=== PATIENT | female | born 1990 | race Caucasian/White ===

== ENCOUNTER 2018-08-18 06:36 | Emergency (ER) | payer BC, SELFPAY ==
[2018-08-18] VITALS (8 sets, daily range): BP systolic 100–125; BP diastolic 60–81; PULSE 66–106; RESP 20; TEMP 37.2; O2SAT 98–100
[2018-08-18] MEDS: Ondansetron 4 MG/2 ML VIAL IVP (07:14)
[2018-08-18] MEDS: Lactated Ringers 1,000 ML 1000 ML IV (07:15)
--- NOTE | 2018-08-18 07:18 | ED.GENADUL_ITS ---
Discharge Plan Disposition Patient Disposition: HOME Condition: Stable Discharge Details Chief Complaint: Nausea/Vomit/Diar Clinical Impression: Nausea & vomiting Primary Care Provider: Cheryl Reese ED Provider: Norman Domingo Home Meds and New Rx's Prescriptions: New ondansetron 4 mg tablet,disintegrating 4 mg PO TID-QID PRN (Reason: nausea and vomiting) Qty: 30 RF: 0 Continued desogestrel-ethinyl estradiol [Juleber] 0.15-0.03 mg tablet 1 tab PO DAILY Qty: 84 RF: 4 fluoxetine 10 mg capsule 10 mg PO prn for pmdd RF: 0 Discharge Instructions Instructions: Acute Nausea and Vomiting (ED) Additional Instructions: follow up with your primary care provider within a week especially if symptoms continue you can take 1000mg tylenol and 600mg ibuprofen every 6 hours for pain as needed if you feel significantly more ill or have persistent vomit return to the emergency department Stand Alone Forms: Work Release Discharge Data Discharge Date/Time-TO BE ENTERED AT DEPARTURE: 08/18/18 09:22 Medical Decision Making <Adolfo Dickson MD - Last Filed: 08/18/18 20:22> Young female patient presenting with GI symptoms involving vomiting and diarrhea. She has developed upper abdominal/epigastric discomfort as well. She also has a posterior headache with some neck stiffness. Headache is not global. There are no neurologic symptoms associated with it. She had fever Thursday into Thursday but none since. Initially started out as all GI symptoms. I do not suspect meningitis or subarachnoid hemorrhage. Abdomen itself is benign. Will place IV and start fluids. Zofran and Pepcid for nausea and abdominal discomfort. Will get labs. We will hold off on Toradol for her neck discomfort due to her complaint of epigastric pain and vomiting. We will try a little bit of Valium IV as I suspect most of this is just muscle spasm involving the posterior neck muscles. <Norman Domingo MD - Last Filed: 08/18/18 08:40> Pt's labs show no acute findings, remains hd stable. She feels mildly better. She states she started with a fever to 101 on Thursday and had n/v/d. Fever has stopped but still has nauesa and a headache. Has no meningismus on exam, no significant abodminal tenderness so do not feel abdominal imaging indicated. We had a long discussion about manager of human resources infection and that though my suspicion for this is low based on exam, hx that these can't rule these out and a LP is the only way to have this done. After detailed discussion of risks/benefits shared decision making was made to defer this at this time. She will f/u with her pcp and return precautions given. My suspicion is that she has a viral illness causing her symptoms HPI <Adolfo Dickson MD - Last Filed: 08/18/18 20:22> General Mode of arrival: ambulatory . Date/Time Provider Initiated Documentation: 08/18/18 07:14 . Limitations to Documentation: no limitations . Information obtained by: patient . HPI Narrative: Patient presents to ED with complaint of nausea, vomiting, diarrhea, upper abdominal discomfort since Thursday night. At this point she is having dry heaves. Diarrhea seems to have slowed down. She is able to keep a few sips of liquids down. She has not been able to eat anything. She did have fever Thursday and Thursday. She has had no travel outside of the [place]. She has not been around anyone ill that she is aware of. She has developed a posterior base of the skull headache with some radiation of discomfort into the neck. She has had these previously although typically does not make her neck so uncomfortable. She denies any back pain. She denies chest pain or shortness of breath. There are no neurologic changes. She does feel weak and tired. Related Data Home Medications Medication Instructions Recorded Confirmed desogestrel 0.15 mg-ethinyl 1 tab PO DAILY #84 tab 04/06/18 06/21/18 estradiol 0.03 mg tablet fluoxetine 10 mg capsule 10 mg PO prn for pmdd 04/06/18 06/21/18 ondansetron 4 mg PO TID-QID PRN #30 tab 08/18/18 Previous Rx's Medication Instructions Recorded desogestrel 0.15 mg-ethinyl 1 tab PO DAILY #84 tab 04/06/18 estradiol 0.03 mg tablet ondansetron 4 mg PO TID-QID PRN #30 tab 08/18/18 Allergies Allergy/AdvReac Type Severity Reaction Status Date / Time moxifloxacin AdvReac Intermediate VOMITING Unverified 04/06/18 14:26 General Stated Complaint: Nausea/Vomit/Diar ELISABET: 3 Review of Systems <Adolfo Dickson MD - Last Filed: 08/18/18 20:22> Review of Systems 12/27 Review of Systems completed and is negative except as stated above in HPI (Systems reviewed: Const, Eyes, ENT, Resp, CV, GI, , MSK, Skin, Neuro) PFS <Adolfo Dickson MD - Last Filed: 08/18/18 20:22> Medical History Abdominal pain (Chronic 06/18/12) Acne (Chronic) Anxiety (Chronic) Celiac disease (Chronic 06/17/12) Depressive disorder (Chronic) 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 Father Leukemia Brother No problems noted. Brother No problems noted. Maternal Grandfather Cancer of kidney Lymphoma Paternal Grandfather No problems noted. Grandmother Breast cancer Skin cancer Paternal Grandmother No problems noted. Social History Smoking/Tobacco Use Status: Never Alcohol Intake: current Alcohol Intake frequency: a few times a month Alcohol type: wine Drug use: Never Substance use type: does not use Caregiver/Support person: No Household members: family Housing: house Pets and animals: Yes Pets and animals: cat(s) Sexually active: Yes Do you think of yourself as: straight/heterosexual Current gender identity: female Duration: 15-30 minutes/day Frequency: 1-2 times per week Veronique/Jehovah'S Witness: Zoroastrianism Special veronique needs: No Do you feel safe at home: Yes Do you feel safe in your relationship?: Yes Exam <Adolfo Dickson MD - Last Filed: 08/18/18 20:22> Narrative Exam Narrative: Vitals: Afebrile. Mild tachycardia otherwise normal. Const: WDWN female in NAD. HEENT: NC/AT. Normal facial exam. Eyes: Normal conjunctiva and sclera. Neck: Posterior neck discomfort and tightness. Trachea midline. Lungs: Normal respiratory effort. Lungs are clear. Cor: RRR without murmur/gallop. Mild tachycardia. Good radial pulses. GI: Soft. NT/ND. No guarding or rebound. Neuro: A+O x 3. CN grossly in tact. Normal strength, sensation, speech, gait and cognition. Ext: No C/C/E. No deformity or tenderness. Skin: Warm and dry without rash. Course <Adolfo Dickson MD - Last Filed: 08/18/18 20:22> Vital Signs Temperature 99.0 F 08/18/18 06:40 Pulse 106 H 08/18/18 06:40 Respiratory Rate 20 08/18/18 06:40 Blood Pressure 125/81 08/18/18 06:40 Pulse Oximetry 100 08/18/18 06:40 Temperature 99.0 F 08/18/18 06:40 Temperature Source Tympanic 08/18/18 06:40 Pulse 106 H 08/18/18 06:40 Respiratory Rate 20 08/18/18 06:40 Respiratory Effort Non-Labored 08/18/18 06:46 Blood Pressure 125/81 08/18/18 06:40 Blood Pressure Position Sitting 08/18/18 06:40 Pulse Oximetry 100 08/18/18 06:40 Oxygen Delivery Method Room Air 08/18/18 06:40 Oxygen Flow Rate 0 08/18/18 06:40 Pain Level 9 08/18/18 06:40 Comment 7 epigastric 08/18/18 06:40 Sign Out <Adolfo Dickson MD - Last Filed: 08/18/18 20:22> Sign Out Data: Sign Out Comment: Signed out to Dr. Rodríguez pending laboratory studies and reevaluation. Last updated by Adolfo Dickson MD at 08/18/18 08:08
[2018-08-18 07:24] LABS: Abs Immature Grans 0.01 k/cumm (0.0-0.09); Absolute Basophil Count 0.01 k/cumm (0.0-0.2); Absolute Eosinophil Count 0.06 k/cumm (0.0-0.7); Absolute Lymphocyte Count 1.92 k/cumm (1.2-3.4); Absolute Monocyte Count 0.63 k/cumm (0.11-0.7); Absolute Neutrophil Count 3.14 k/cumm (1.2-6.7); Basophils % 0.2; HGB 13.6 g/dL (12.0-15.5); Immature Grans % 0.2; Lymphocytes % 33.3; Mean Corp. HGB Concentration 36.8 g/dL (32.0-36.0); Mean Corpuscular Hemoglobin 30.3 pg (27.0-33.0); Mean Corpuscular Volume 82.4 fL (80-95); Mean Platelet Volume 8.6 fL (8.0-11.0); Monocytes % 10.9; Neutrophils % 54.4; Platelet Count 288 x1000/uL (130-400); RBC 4.49 m/cumm (4.00-5.20); RBC Distribution Width 11.8 % (11.7-14.6); White Blood Cell Count 5.77 k/cumm (4.4-10.8)
[2018-08-18 07:40] LABS: ALT 17 U/L (12-78); AST 14 U/L (15-37); Albumin 3.2 g/dL (3.4-5.0); Alkaline Phosphatase 50 U/L (46-116); Anion Gap 10.5 mmol/L (3-11); BUN 9 mg/dL (7-18); Bilirubin, Total 0.3 mg/dL (0.2-1.0); CO2 22.5 mmol/L (21.0-32.0); CREATININE 0.82 mg/dL (0.55-1.02); Calcium 8.6 mg/dL (8.5-10.1); Chloride 103 mmol/L (98-107); Glucose 98 mg/dL (70-100); Lipase 154 U/L (73-393); Magnesium 1.9 mg/dL (1.8-2.4); Potassium 3.4 mmol/L (3.5-5.1); Sodium 136 mmol/L (136-145); Total Protein 7.4 g/dL (6.4-8.2)
[2018-08-18] MEDS: diazePAM 10 MG/2 ML SYR 2.5 MG IVP (07:48)
[2018-08-18] MEDS: FAMOTIDINE 20 MG/50 ML BAG 200 MG IVPB (07:49)
[2018-08-18 08:15] LABS: Diff Comment RBC Morph Reviewed; RBC Morphology Normal
[2018-08-18] MEDS: Ketorolac 15 MG/ML VIAL IVP (08:25)
[2018-08-19 11:04] LABS: Lyme Ab w Rflx to Lyme Confirm Negative
[2018-08-19 21:27] LABS: Anaplasma phagocytophilum Negative (Negative); B. miyamotoi PCR Negative (Negative); Babesia divergens/MO-1 Negative (Negative); Babesia duncani Negative (Negative); Babesia microti Negative (Negative); Ehrlichia chaffeensis Negative (Negative); Ehrlichia ewingii/canis Negative (Negative); Ehrlichia muris eauclairensis Negative (Negative)
== END 2018-08-18 09:22 | disposition home or self-care (01) ==
PROVIDERS: Emergency Medicine; Emergency Provider Emergency Medicine; PCP Family Medicine
DX: R11.2 Nausea with vomiting, unspecified (principal); R19.7 Diarrhea, unspecified; R10.13 Epigastric pain; R51 Headache
CPT/HCPCS: 36415; 80053; 81025; 83690; 96361; 96365; 96375; 99284; 83735; 85025; 86618; 87798; J1885; J2405; J3360

== ENCOUNTER 2018-12-20 14:01 | Observation (INO) | payer BC, SELFPAY ==
[2018-12-20] VITALS (14 sets, daily range): BP systolic 99–237; BP diastolic 61–110; PULSE 75–118; RESP 10–37; TEMP 36.3–37.2; O2SAT 96–100
[2018-12-20] MEDS: Acetaminophen 500 MG TAB 1000 MG PO (07:47)
[2018-12-20] MEDS: Gabapentin 300 MG CAP PO (07:48)
[2018-12-20] MEDS: Lactated Ringers 1,000 ML 120 ML IV ×2 (07:48→13:32)
--- NOTE | 2018-12-20 08:32 | PDOC.DSDIS_ITS ---
Discharge Plan Disposition Patient Disposition: HOME Condition: Good Discharge Details Reason For Visit: excision anal tag Attending Provider: Jennifer Canada Primary Care Provider: Cheryl Reese Home Meds and New Rx's Prescriptions: New dibucaine 1 % ointment 1 applic CO QID PRN (Reason: rectal discomfort) Qty: 56.7 RF: 3 oxycodone 5 mg capsule 5 mg PO Q6H PRN (Reason: pain) Qty: 7 RF: 0 bisacodyl [Dulcolax (bisacodyl)] 5 mg tablet,delayed release (DR/EC) 5 mg PO QHS 14 Days Qty: 14 RF: 2 Continued desogestrel-ethinyl estradiol [Juleber] 0.15-0.03 mg tablet 1 tab PO DAILY Qty: 84 RF: 4 fluoxetine 10 mg capsule 10 mg PO prn for pmdd RF: 0 Discharge Instructions Additional Instructions: Home Care Instructions after Rectal Surgery Pain/muscle spasms are normal after surgery. Use the prescribed pain medication s, valium and topical creams. Do not use any other creams unless specifically prescribed for you. It takes oral pain meds an hour to take effect. Do not get behind on your pain meds. You can alternate with NSAID?s (ibuprofen 400- 600mg) every 8 hours. Take with food; do not take if you have ulcers or sensitivity to aspirin. Constipation occurs with the use of narcotic pain medications. The first bowel movement after surgery will be painful. Do not let yourself get constipated. Stay on a stool softener while you are on the narcotics. It is recommended that you use a fiber supplement (Metamucil, Citrucel) daily (1 tablespoon in 8 oz of water). If you do not have a bowel movement daily, use Milk of Magnesia or Miralax. It is normal to have bleeding or drainage after rectal surgery; especially when you move your bowels. Use a sanitary napkin to collect the discharge. If you are passing large clots or having to change the pad more than every 4 hours, call the clinic or go to the ER. You may experience spasms in the rectal muscles. This is normal after surgery and last for about two weeks. They can become more intense with bowel movements. You can use the valium as a muscle relaxant (do not take at the same time as the pain medications). You can also try sitz bathes (sitting in a bath tub of PLAIN lukewarm water; soap can add to rectal irritation). Or you can try ice packs. You will have to see what works best for you. It is ok to shower. Avoid soap on the surgical area. Use a pillow to sit on. Follow a mild bland diet. Avoid alcohol, spicy food, citrus, and tomatoes. Avoid strenuous activity (running, jogging, and power walking, swimming, weight lifting) for two weeks. No lifting over 5 pounds for 2 weeks. [address] if taking pain medications, or cannot turn or twist your body without hesitation. You can return to work when you are no longer taking the pain meds, can sit comfortably for 8 hours or when the weight restrictions are lifted. Urinary retention is common. Sit in a warm tub to try to relax the bladder. If you are unable to urinate after 8 hours, call the office or go to the ER. If you have packing in place, follow the directions for doing the dressing changes. If you have stitches in place, they will fall out in about 7-10 days. They may develop an ?odor?. Follow up in 2 weeks- call the office for an appointment. Activity:: no strenuous acitivity x 2 wks Diet:: As Tolerated Discharge Orders Discharge Orders: Discharge Order (Routine); Ordered 12/20/18 Ordered By: Jennifer Canada DS: Diagnosis Discharge Diagnosis (1) Rectal spasm: Status: Acute (2) Skin tags, anus or rectum: Status: Acute (3) Anal fissure: Status: Acute
--- NOTE | 2018-12-20 09:18 | W.PM.OP ---
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
[2018-12-20] MEDS: Gelatin SPONGE 12-7 MM PKT 1 EACH TP (09:27)
[2018-12-20] MEDS: LORazepam 2 MG/ML VIAL 0.5 MG IVP (10:00)
--- NOTE | 2018-12-20 10:44 | ROE_ITS ---
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 POSTOPERATIVE DIAGNOSIS: Same. SURGEON: Jennifer Canada D.O. ANESTHESIA: MAC ESTIMATED BLOOD LOSS: < 0.5 cc CONDITION: The patient tolerated the procedure well without complication. INDICATION: Ms. 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 She is not a candidate to have it removed in the clinic and is here today for surgery. Informed consent is obtained explaining risks and benefits of the procedu re, including but not limited to bleeding, infection, pneumonia, blood clots, complications from anes thesia. She understands it could recur with constipation and straining to move her bowels. PROCEDURE: The patient is brought to the operative suite and placed in the prone position with all b fredo surfaces padded. Anesthesia is administered per the Department of Anesthesia. The area is prepp ed and draped in the usual sterile fashion using a Betadine scrub solution. A time-out is done. The tag is at the 6 o'clock position and it is anesthetized with 10 cc's of 0.25% Marcaine with epinephr ine. The tag is excised with cautery. The incision was closed with one stitch of #4-0 Vicryl. Gelf oam was placed in the rectum. The patient is transferred to the recovery room in stable condition. The patient tolerated the procedure well without complications. cc: Cheryl Reese M.D.
--- NOTE | 2018-12-20 14:06 | W.PM.PROGNOT ---
Date of Service Date of service: 12/20/18 Time of Service: 14:06 Assessment and Plan Assessment and plan (1) Skin tags, anus or rectum: Status: Acute (2) Panic attack as reaction to stress: Status: Acute (3) Idiosyncratic reaction to medication after proper dose: Status: Acute (4) PONV (postoperative nausea and vomiting): Status: Acute Assessment and plan: still feels very nausated and tired. more awake adn alert. hasn't been able to eat yet less agitated and no longer hyperventilating needs to be able to eat/keep fluids down prior to d/c. Subjective Subjective Interval history since last seen: still feels very nausated. no headaches. No CP or SOB. no productive cough. no dysuria. no leg pain or swelling. no pain at surgery site pt throw up toast and madhavi bill in PACU. Exam Resp Effort & Inspection: normal respiratory effort and able to speak in complete sentences Cardio Rate: regular rate Rhythm: regular rhythm GI Inspection: normal to inspection Palpation: soft Other: no pain no bleeding from sx site Extrem General: normal to inspection and no clubbing, cyanosis or edema Objective Objective Clinical Data: Vital Signs Temperature 36.5 C 12/20/18 13:05 Pulse 85 12/20/18 13:33 Pulse Rhythm Regular 12/20/18 07:20 Respiratory Rate 18 12/20/18 13:33 Respiratory Depth Normal 12/20/18 07:20 Blood Pressure 113/64 12/20/18 13:33 Pulse Oximetry 97 12/20/18 13:33 Respiratory End-tidal CO2 29 12/20/18 10:25 Oxygen Delivery Method Room Air 12/20/18 13:33 Oxygen Flow Rate 3 12/20/18 10:00 Pain Level 0 12/20/18 13:33 Intake & Output 12/19/18 12/20/18 12/20/18 23:59 11:59 23:59 Intake Total 815 / 1015 200 / 1015 Balance 815 / 1015 200 / 1015 Weight 70.4 kg Intake: IV 800 / 1000 200 / 1000 Oral Other: Emesis Description None Retching
[2018-12-20] MEDS: Normal Saline 1,000 ML 125 ML IV (15:50)
[2018-12-20] MEDS: Prochlorperazine 10 MG/2 ML VIAL 5 MG IVP (16:24)
[2018-12-20] MEDS: ACETAMINOPHEN 1,000 MG/100 ML BTL 400 MG IVPB ×2 (16:31→21:22)
[2018-12-20] MEDS: Docusate Sodium 100 MG CAP PO (19:37)
[2018-12-21] MEDS: Normal Saline 1,000 ML 125 ML IV (00:43)
[2018-12-21 05:30] VITALS: BP 109/64; PULSE 82; RESP 16; TEMP 37.2; O2SAT 98
[2018-12-21] MEDS: Normal Saline Flush 10 ML SYR IVP (06:21)
[2018-12-21] MEDS: ACETAMINOPHEN 1,000 MG/100 ML BTL 400 MG IVPB (06:21)
--- NOTE | 2018-12-21 07:24 | DSE_ITS ---
Date of service: 12/21/18 Time of Service: 07:24 DS: Diagnosis Discharge Diagnosis (1) Skin tags, anus or rectum: Status: Acute (2) Panic attack as reaction to stress: Status: Acute (3) Idiosyncratic reaction to medication after proper dose: Status: Acute (4) PONV (postoperative nausea and vomiting): Status: Acute Discharge Plan Disposition Patient Disposition: HOME Condition: Good Discharge Details Reason For Visit: excision anal tag /PANIC ATTACK AFTER ANESTHESIA Admit Date/Time: 12/20/18 14:01 Admit Provider: Jennifer Canada Attending Provider: Jennifer Canada Primary Care Provider: Cheryl Reese [facility] Course Hospital Course: 28 y/o female s/p anal skin tag excision was admitted over night for observation following anesthesia. She was having dizziness, hyperventilation and difficulty taking in anything PO. Over night she was able to eat dinner and tolerated this well. She reports this morning, she continues to have slight dizziness when she first stands up.Otherwise she denies having any pain or discomfort. Will D/c home after she eats breakfast. Follow up as out patient with Dr. Canada in 2 weeks. Home Meds and New Rx's Prescriptions: New dibucaine 1 % ointment 1 applic NE QID PRN (Reason: rectal discomfort) Qty: 56.7 RF: 3 oxycodone 5 mg capsule 5 mg PO Q6H PRN (Reason: pain) Qty: 7 RF: 0 bisacodyl [Dulcolax (bisacodyl)] 5 mg tablet,delayed release (DR/EC) 5 mg PO QHS 14 Days Qty: 14 RF: 2 clonazepam 0.5 mg tablet 0.5 mg PO DAILY PRN (Reason: panic attack(s)) Qty: 1 RF: 0 Continued desogestrel-ethinyl estradiol [Juleber] 0.15-0.03 mg tablet 1 tab PO DAILY Qty: 84 RF: 4 fluoxetine 10 mg capsule 10 mg PO prn for pmdd RF: 0 Discharge Instructions Additional Instructions: Home Care Instructions after Rectal Surgery Pain/muscle spasms are normal after surgery. Use the prescribed pain medications, valium and topical creams. Do not use any other creams unless specifically prescribed for you. It takes oral pain meds an hour to take effect. Do not get behind on your pain meds. You can alternate with NSAID?s (ibuprofen 400-600mg) every 8 hours. Take with food; do not take if you have ulcers or sensitivity to aspirin. Constipation occurs with the use of narcotic pain medications. The first bowel movement after surgery will be painful. Do not let yourself get constipated. Stay on a stool softener while you are on the narcotics. It is recommended that you use a fiber supplement (Metamucil, Citrucel) daily (1 tablespoon in 8 oz of water). If you do not have a bowel movement daily, use Milk of Magnesia or Miralax. It is normal to have bleeding or drainage after rectal surgery; especially when you move your bowels. Use a sanitary napkin to collect the discharge. If you are passing large clots or having to change the pad more than every 4 hours, call the clinic or go to the ER. You may experience spasms in the rectal muscles. This is normal after surgery and last for about two weeks. They can become more intense with bowel movements. You can use the valium as a muscle relaxant (do not take at the same time as the pain medications). You can also try sitz bathes (sitting in a bath tub of PLAIN lukewarm water; soap can add to rectal irritation). Or you can try ice packs. You will have to see what works best for you. It is ok to shower. Avoid soap on the surgical area. Use a pillow to sit on. Follow a mild bland diet. Avoid alcohol, spicy food, citrus, and tomatoes. Avoid strenuous activity (running, jogging, and power walking, swimming, weight lifting) for two weeks. No lifting over 5 pounds for 2 weeks. [address] if taking pain medications, or cannot turn or twist your body without hesitation. You can return to work when you are no longer taking the pain meds, can sit comfortably for 8 hours or when the weight restrictions are lifted. Urinary retention is common. Sit in a warm tub to try to relax the bladder. If you are unable to urinate after 8 hours, call the office or go to the ER. If you have packing in place, follow the directions for doing the dressing ch anges. If you have stitches in place, they will fall out in about 7-10 days. They may develop an ?odor?. Follow up in 2 weeks- call the office for an appointment. Stand Alone Forms: DSU Post op Instructions, [place] (DSU) Activity:: Activity as Tolerated Equipment/Supplies:: No Equipment Needed Diet:: As Tolerated Discharge Orders Discharge Orders: Discharge Order (Routine); Ordered 12/20/18 Ordered By: Jennifer Canada DS: Summary Status at Discharge Functional status at discharge: independent ambulation Overall status at discharge: patient is back to baseline Mental Status: mental status grossly normal Speech and Movement: speech and movement normal Mood: congruent mood Affect: normal affect Exam Const General: cooperative, healthy appearing and comfortable Orientation: alert and oriented x3 Resp Effort & Inspection: normal respiratory effort, normal respiratory pattern and no audible wheezes Psych Appearance: grossly normal Mental Status: mental status grossly normal Speech and Movement: speech and movement normal Mood: congruent mood Affect: normal affect Attitude: cooperative Thought Process: normal Insight: insight good Judgment: judgment good DS: Data Vitals/I&O Vitals and I&O: Vital Signs Temperature 37.2 C 12/21/18 05:30 Temperature Source Tympanic 12/21/18 05:30 Pulse 82 12/21/18 05:30 Pulse Rhythm Regular 12/21/18 04:48 Respiratory Rate 16 12/21/18 05:30 Respiratory Effort Non-Labored 12/21/18 04:48 Respiratory Depth Normal 12/21/18 04:48 Respiratory Pattern Normal 12/21/18 04:48 Blood Pressure 109/64 12/21/18 05:30 Pulse Oximetry 98 12/21/18 05:30 Respiratory End-tidal CO2 29 12/20/18 10:25 Oxygen Delivery Method Room Air 12/21/18 05:30 Oxygen Flow Rate 0 12/21/18 05:30 Pain Level 0 12/20/18 20:05 Intake & Output 12/20/18 12/21/18 12/21/18 18:59 06:59 18:59 Intake Total 1115 / 2215 1100 / 2215 Output Total 600 / 2250 1650 / 2250 Balance 515 / -35 -550 / -35 Weight 70.4 kg Intake: IV 1100 / 2200 1100 / 2200 Oral 15 / 15 Output: Urine 600 / 2250 1650 / 2250 Other: Urine Color Pale Yellow Yellow Urine Appearance Clear Clear Urine Odor None Emesis Description Retching Voiding Methods Toilet Toilet [facility] Medical History (Updated 12/20/18 @ 15:42 by Jennifer Canada DO) Abdominal pain (Chronic 06/18/12) Acne (Chronic) Anal fissure (Acute) Anxiety (Chronic) Panic attacks Celiac disease (Chronic 06/17/12) dx 2013 Depressive disorder (Chronic) ?Bipolar Disorder characterized by back pain (Chronic) right upper back Dysmenorrhea (Chronic) Relieved with O.C.; Menorrhagia Hirsutism (Chronic) History of postoperative nausea and vomiting (Acute) Idiosyncratic reaction to medication after proper dose (Acute) Panic attack as reaction to stress (Acute) Pap smear of vagina with ASC-US (Chronic) DR. GARCIA Polycystic ovary syndrome (Chronic 03/29/14) DR. JOSE OCONNELL (postoperative nausea and vomiting) (Acute) Rectal spasm (Acute) Skin tags, anus or rectum (Acute) Surgical History Colonoscopy - IV Sedation (06/14/12) DR. CARLA LUA;NEG EGD - IV Sedation (06/14/12) DR. CARLA LUA; NEG RADIUS/ULNA (~01/2003) INTERNAL FIXATION; RIGHT Tooth extraction WISDOM TEETH 2006 Family History Mother No problems noted. Father Leukemia Brother No problems noted. Brother No problems noted. Maternal Grandfather Cancer of kidney Lymphoma Paternal Grandfather No problems noted. Grandmother Breast cancer Skin cancer Paternal Grandmother No problems noted. Social History Smoking/Tobacco Use Status: Never Alcohol Intake: current Alcohol Intake frequency: a few times a month Alcohol type: wine Drug use: Never Substance use type: does not use Caregiver/Support person: No Household members: family Housing: house Pets and animals: Yes Pets and animals: cat(s) Sexually active: Yes Do you think of yourself as: straight/heterosexual Current gender identity: female Duration: 15-30 minutes/day Frequency: 1-2 times per week Veronique/Taoism: [employer] Special veronique needs: No Do you feel safe at home: Yes Do you feel safe in your relationship?: Yes
[2018-12-21 07:25] VITALS: BP 109/67; PULSE 79; RESP 18; TEMP 37; O2SAT 97
[2018-12-21] MEDS: Docusate Sodium 100 MG CAP PO (08:35)
--- NOTE | 2018-12-21 12:12 | W.PM.PROGNOT ---
Date of Service Date of service: 12/21/18 Time of Service: 12:12 Assessment and Plan Assessment and plan (1) PONV (postoperative nausea and vomiting): Status: Acute Assessment and plan: A\\ resolved P\\ Scolpolamine patch prior to surgeries Benzodiazepines added as adverse reaction (2) Panic attack as reaction to stress: Status: Acute Assessment and plan: A\\ Patient sees a counselor already for her anxiety (3) Skin tags, anus or rectum: Status: Acute Assessment and plan: A\\ Doing OK P\\ Follow up with Dr. [place] in 2 weeks Subjective Subjective Interval history since last seen: Patient feeling better. No more N/V Patient upset about everyone talking to her about her anxiety and not addressing the fact that she has N/V after surgery every time. Spoke to patient and explained we are just concerned. I told her I would add benzodiazepines as an adverse reaction. I also recommended that she ask for a scolpolamione patch prior to any other surgeries to try and avoid N/V. She sees a counselor about her anxiety and feels it is well controlled. Exam Const General: cooperative, comfortable and no acute distress Orientation: alert and oriented x3 HENMT Head: normocephalic and atraumatic Objective Objective Clinical Data: Vital Signs Temperature 98.6 F 12/21/18 07:25 Temperature Source Tympanic 12/21/18 07:25 Pulse 79 12/21/18 07:25 Pulse Rhythm Regular 12/21/18 09:41 Respiratory Rate 18 12/21/18 07:25 Respiratory Effort Non-Labored 12/21/18 09:41 Respiratory Depth Normal 12/21/18 09:41 Respiratory Pattern Normal 12/21/18 09:41 Blood Pressure 109/67 12/21/18 07:25 Pulse Oximetry 97 12/21/18 07:25 Respiratory End-tidal CO2 29 12/20/18 10:25 Oxygen Delivery Method Room Air 12/21/18 07:25 Oxygen Flow Rate 0 12/21/18 07:25 Pain Level 0 12/21/18 07:25 Intake & Output 12/20/18 12/21/18 12/21/18 23:59 11:59 23:59 Intake Total 1400 / 2215 1350 / 1350 Output Total 1750 / 1750 1100 / 1100 Balance -350 / 465 250 / 250 Intake: IV 1400 / 2200 1100 / 1100 Oral 250 / 250 Output: Urine 1750 / 1750 1100 / 1100 Other: Urine Color Pale Yellow Urine Appearance Clear Clear Urine Odor None None Emesis Description Retching Voiding Methods Toilet Toilet
== END 2018-12-21 12:12 | disposition home or self-care (01) ==
LOC: PDS 14:35 → MS 14:52
PROVIDERS: Admitting Provider Surgery; PCP Family Medicine; Visit Provider Surgery
PROC: 0DBQXZZ Excision of Anus, External Approach (ICD-10-PCS; CPT 46220; principal; 2018-12-20 08:15)
DX: T41.1X5A Adverse effect of intravenous anesthetics, initial encounter; F43.0 Acute stress reaction; K64.4 Residual hemorrhoidal skin tags; K60.1 Chronic anal fissure; R19.8 Other specified symptoms and signs involving the digestive system and abdomen; K90.0 Celiac disease; K91.0 Vomiting following gastrointestinal surgery; Y83.8 Other surgical procedures as the cause of abnormal reaction of the patient, or of later complication, without mention of misadventure at the time of the procedure; Z23 Encounter for immunization
CPT/HCPCS: 46220; 99238; NC; G0378; J0131; J0780; J2060

== ENCOUNTER 2020-06-20 09:43 | Outpatient (CLI) | payer BC, SELFPAY ==
--- NOTE | 2020-06-20 10:00 | DI.RAD_ITS ---
EXAM: XR WRIST RT COMPLETE CLINICAL HISTORY: Acute pain above a previous surgical area, wrist pain, M25.539. TECHNIQUE: 2D digital imaging was performed. COMPARISON: No exams were available for comparison FINDINGS: BONES: There is an old healed fracture of the distal radial metadiaphysis. No acute fracture is pres ent. No bony destructive lesion is seen. JOINTS: The carpal bones are normally aligned. SOFT TISSUE: Normal. IMPRESSION: Old distal radial fracture. No acute abnormality. DATA REPOSITORY: RADIATION DOSE DELIVERED:
== END 2020-06-20 10:03 ==
PROVIDERS: PCP Family Medicine; Visit Provider Nurse Practitioner Family
DX: M25.531 Pain in right wrist (principal); Z87.81 Personal history of (healed) traumatic fracture
CPT/HCPCS: 73110

== ENCOUNTER 2021-02-05 01:21 | Outpatient (CLI) | payer BC, SELFPAY ==
--- NOTE | 2021-02-05 | DI.MRI_ITS ---
Exam(s) MR BRAIN WO EXAM: MR BRAIN WO CLINICAL HISTORY: CHIARI I MALFORMATION, G93.5 TECHNIQUE: Multiplanar multisequence MRI of the brain was performed. COMPARISON: MR MRI IAC'S WO CONTRAST from 08/26/2017 FINDINGS: The ventricular system is normal in appearance. Note is again made of position right cerebellar tons il inferior margin about 5 millimeters below the foramen magnum, unchanged from prior study of August 15 from [facility] period No signal abnormality identified in the brain. The orbital and temporal bone structures appear intact as does the pituitary. Diffusion weighted imaging shows no evidence of infarction. Susceptibility weighted imaging shows no evidence of intracranial hemorrhage. There is normal flow void in the [place] vasculature. IMPRESSION: No evidence of acute process. Stable appearance of cerebellar tonsils since 2018, question Chiari 1 malformation. DATA REPOSITORY:
== END 2021-02-05 01:41 ==
PROVIDERS: PCP Family Medicine; Visit Provider Physician Assistant Surgical
DX: G93.5 Compression of brain (principal)
CPT/HCPCS: 70551

== ENCOUNTER 2021-02-10 15:44 | Emergency (ER) | payer BC, SELFPAY ==
[2021-02-10 15:46] VITALS: BP 114/67; PULSE 72; RESP 16; TEMP 36.7; O2SAT 100
--- NOTE | 2021-02-10 16:17 | ED.GENADUL_ITS ---
Discharge Plan Disposition Patient Disposition: HOME Condition: Stable Discharge Details Clinical Impression: Lumbar strain Primary Care Provider: Cheryl Reese ED Provider: Petra Wilburn Home Meds and New Rx's Prescriptions: New orphenadrine citrate 100 mg tablet extended release 100 mg PO BID Qty: 10 RF: 0 Continued albuterol sulfate [ProAir HFA] 90 mcg/actuation HFA aerosol inhaler 2 puff IH 6XD PRN (Reason: shortness of breath or wheezing) Qty: 18 RF: 0 desogestrel-ethinyl estradiol [Isibloom] 0.15-0.03 mg tablet 1 tab PO DAILY RF: 0 Discharge Instructions Instructions: Low Back Strain (ED) Additional Instructions: Failure Norflex first thing in the morning, this is a muscle relaxant, you received a 12-hour dose in the emergency room Take ibuprofen 600 mg every 8 hours if you do, take your next dose before bedtime Tylenol 1 g every 6 hours, take a dose of this before you go to bed Oxycodone is addictive, we are giving you 4 tablets, take this sparingly Do not drive for 8 hours after taking this medication Recheck with your primary care physician tomorrow, return earlier should you have new or worsening complaints including sensation change, changes in bowel or bladder, or with any new or worsening complaints Referrals: Cheryl Reese MD, [place] [Primary Care Provider] - Discharge Data Discharge Date/Time-TO BE ENTERED AT DEPARTURE: 02/10/21 18:04 Medical Decision Making Patient is feeling marked improvement, she is ambulatory with steady gait No indication for imaging as there is no direct trauma No evidence of cauda equina syndrome Discharged home with Skelaxin, ibuprofen Given low threshold to return with new or worsening complaints Instructed to follow-up with primary care physician in 24 to 48 hours and to return earlier as needed Medical Records Medical records reviewed: Yes I reviewed the patient's medical records. Lab Data Lab results reviewed: Yes I reviewed the patient's lab results. HPI General Mode of arrival: ambulatory . Date/Time Provider Initiated Documentation: 02/10/21 16:00 . Limitations to Documentation: no limitations . Information obtained by: patient . HPI Narrative: This 30-year-old female presents with acute onset of back pain. Patient states she moved numerous object,, and Heister correct history. She states she sat down and went to stand up when her back went back and she had sharp pain pain which caused her to fall. She denies loss of consciousness or hitting her head. She denies any fever or chills. She denies any abdominal pain, chest pain, shortness of breath. She denies any fever or chills. She denies any changes in bowel or bladder history of illicit drug use. She states she has a history of back pain but denies prior history of it being this significant. Denies any new headache or neck pain. Denies any change in strength or sensation in her extremities. Related Data Home Medications Medication Instructions Recorded Confirmed albuterol sulfate 90 mcg/actuation 2 puff IH 6XD PRN #18 gm 05/10/19 02/10/21 aerosol inhaler desogestrel-ethinyl estradiol 1 tab PO DAILY 02/10/21 02/10/21 [Isibloom] orphenadrine citrate 100 mg PO BID #10 tab 02/10/21 Previous Rx's Medication Instructions Recorded albuterol sulfate 90 mcg/actuation 2 puff IH 6XD PRN #18 gm 05/10/19 aerosol inhaler orphenadrine citrate 100 mg PO BID #10 tab 02/10/21 Allergies Allergy/AdvReac Type Severity Reaction Status Date / Time diphenhydramine AdvReac Severe Agitation Verified 02/10/21 15:57 [From Benadryl] midazolam [From Versed] AdvReac Severe nausea/dizzy. Verified 02/10/21 15:57 causes panic attacks postOP moxifloxacin AdvReac Intermediate VOMITING Verified 02/10/21 15:57 Benzodiazepines AdvReac Mild vomiting Verified 02/10/21 15:57 General Stated Complaint: Nk/Back Pain ELISABET: 3 Review of Systems All systems reviewed & are unremarkable except as noted in HPI and below [facility] Active Problem List (Updated 02/10/21 @ 17:51 by PRESTON Griffin) Lumbar strain (Acute) Balance disorder (Acute) Chiari malformation (Acute) Wrist pain (Acute) Depressive disorder (Acute) Exercise-induced asthma (Acute) Adverse effect of anesthesia (Acute) PONV (postoperative nausea and vomiting) (Acute) Annual physical exam (Acute) Skin tags, anus or rectum (Acute) Anal fissure (Acute) Acne (Chronic) Anxiety (Chronic) Celiac disease (Chronic 06/17/12) Depressive disorder (Chronic) Dysmenorrhea (Chronic) Hirsutism (Chronic) Pap smear of vagina with ASC-US (Chronic) Polycystic ovary syndrome (Chronic 03/29/14) Medical History (Updated 02/10/21 @ 17:51 by PRESTON Griffin) Abdominal pain (06/18/12) Abdominal pain (06/18/12) Anemia (09/09/12) Chronic bilateral thoracic back pain (03/11/16) Closed fracture of radius Closed fracture of right radius and ulna Disorder characterized by back pain right upper back History of postoperative nausea and vomiting Other specified disorder of rectum and anus (05/24/12) Proteinuria Rectal hemorrhage (06/18/12) Rectal spasm Surgical History (Updated 02/24/19 @ 15:17 by Cheryl Reese MD, [place]) Colonoscopy - IV Sedation (06/14/12) DR. CARLA LUA;NEG EGD - IV Sedation (06/14/12) DR. CRALA LUA; NEG History of esophagogastroduodenoscopy (06/14/12) History of wisdom tooth extraction RADIUS/ULNA (~01/2003) INTERNAL FIXATION; RIGHT Tooth extraction WISDOM TEETH 2006 Family History Mother No problems noted. Father Leukemia Brother No problems noted. Brother No problems noted. Maternal Grandfather Cancer of kidney Lymphoma Paternal Grandfather No problems noted. Grandmother Breast cancer Skin cancer Paternal Grandmother No problems noted. Social History (Updated 09/21/19 @ 16:14 by Glenny Barrera) Smoking/Tobacco Use Status: Never Second Hand Exposure: No Smoking risk assessment performed?: Yes Alcohol Intake: current Alcohol Intake frequency: holidays/special occasions only Alcohol type: wine Drug use: Never Substance use type: does not use Caregiver/Support person: No Household members: other Housing: house Pets and animals: Yes Pets and animals: cat(s) Sexually active: Yes Do you think of yourself as: straight/heterosexual Current gender identity: female What is your relationship status?: never How often do you talk on the phone with friends or family?: three or more times per week How often do you get together with friends or relatives?: three or more times per week How often do you attend congregation or confucianist services?: 1-3 times per year Panel score (0-1 are the most socially isolated patients): 1 Duration: 15-30 minutes/day Frequency: 1-2 times per week Veronique/Evangelical: Evangelical Special veronique needs: No Water heater temp set <120 deg: Yes Do you feel safe at home: Yes Do you feel safe in your relationship?: Yes Exam Const General: cooperative and no acute distress Eyes Pupils: PERRL Neck Other: No midline tenderness Resp Effort & Inspection: normal respiratory effort Auscultation: clear to auscultation bilaterally Cardio Rate: regular rate Rhythm: regular rhythm GI Other: No abdominal tenderness, no CVA tenderness Back/Spine/Pelvis Back/spine/pelvis image: 1. tenderness with palpation Skin General skin exam: no rashes or lesions noted Neuro General: patient alert and patient oriented x3 Other: Strength and sensation intact distally, DTRs are intact bilateral upper and lower extremities Extrem General: normal to inspection Other: Neurovascularly intact Course Vital Signs Vital signs: Vital Signs Temperature 36.7 C 02/10/21 15:46 Pulse 72 02/10/21 15:46 Respiratory Rate 16 02/10/21 15:46 Blood Pressure 114/67 02/10/21 15:46 Pulse Oximetry 100 02/10/21 15:46 Temperature 36.7 C 02/10/21 15:46 Temperature Source Skin 02/10/21 15:46 Pulse 72 02/10/21 15:46 Respiratory Rate 16 02/10/21 15:46 Respiratory Effort Non-Labored 02/10/21 15:46 Blood Pressure 114/67 02/10/21 15:46 Blood Pressure Position Supine 02/10/21 15:46 Pulse Oximetry 100 02/10/21 15:46 Oxygen Delivery Method Room Air 02/10/21 15:46 Oxygen Flow Rate 0 02/10/21 15:46 Pain Level 6 02/10/21 15:46
[2021-02-10] MEDS: Ketorolac 15 MG/ML VIAL IVP (16:31)
[2021-02-10] MEDS: Ondansetron 4 MG/2 ML VIAL IVP (16:31)
[2021-02-10] MEDS: Orphenadrine 60 MG/2 ML VIAL IVP (16:31)
[2021-02-10] MEDS: Normal Saline 1,000 ML 1000 ML IV (16:56)
[2021-02-10] MEDS: Prochlorperazine 10 MG/2 ML VIAL 5 MG IVP (16:56)
== END 2021-02-10 18:04 | disposition home or self-care (01) ==
PROVIDERS: Emergency Provider Physician Assistant; PCP Family Medicine
DX: S39.012A Strain of muscle, fascia and tendon of lower back, initial encounter (principal); X50.9XXA Other and unspecified overexertion or strenuous movements or postures, initial encounter
CPT/HCPCS: 96361; 96374; 96375; 99284; J2360; J0780; J1885; J2405

== ENCOUNTER 2021-03-07 02:20 | Outpatient (CLI) | payer BC, SELFPAY ==
--- NOTE | 2021-03-07 | DI.MRI_ITS ---
Exam(s) MR ANGIO BRAIN WO CLINICAL HISTORY: CHIARI I MALFORMATION,G93.5,H/O HEADACHE,ON OCP,? SINUS THROMBOSIS. TECHNIQUE: Multiplanar multisequence MR venogram of the brain was performed. COMPARISON: None. FINDINGS: No evidence venous sinus occlusion or thrombosis. Deep and peripheral veins are patent. IMPRESSION: Normal MR venogram. DATA REPOSITORY:
== END 2021-03-07 02:40 ==
PROVIDERS: PCP Family Medicine; Visit Provider Neurological Surgery
DX: R51.9 Headache, unspecified (principal); G93.5 Compression of brain; Z79.3 Long term (current) use of hormonal contraceptives
CPT/HCPCS: 70544

== ENCOUNTER 2021-03-07 02:21 | Outpatient (CLI) | payer BC, SELFPAY ==
--- NOTE | 2021-03-07 13:50 | DI.RAD_ITS ---
Exam(s) XR LUMBAR SPINE COMPLETE EXAM: XR LUMBAR SPINE COMPLETE CLINICAL HISTORY: LOW BACK PAIN, ,M54.50. TECHNIQUE: 2D digital imaging was performed. COMPARISON: CR THORACIC SPINE from 08/14/2009 FINDINGS: BONES: No fracture or destructive lesion. Vertebral bodies are unremarkable. No facet hypertrophy david ntified. Right L5 spondylolysis. DISKS: Intervertebral disc spaces are maintained. ALIGNMENT: Mild levo rotoscoliosis. No spondylolisthesis. SOFT TISSUE: Normal. IMPRESSION: Right L5 spondylolysis without evidence of spondylo listhesis. Mild scoliosis. DATA REPOSITORY: RADIATION DOSE DELIVERED:
== END 2021-03-07 02:41 ==
PROVIDERS: PCP Family Medicine; Visit Provider Family Medicine
DX: M54.59 Other low back pain (principal); M43.06 Spondylolysis, lumbar region; M41.86 Other forms of scoliosis, lumbar region
CPT/HCPCS: 72110

== ENCOUNTER 2021-04-29 17:13 | Outpatient (REF) | payer BC, SELFPAY ==
[2021-05-01 12:49] LABS: COVID-19 RT-PCR UVMMC Result Negative (Negative)
== END 2021-04-29 17:14 | disposition home or self-care (01) ==
LOC: LBN 17:13
PROVIDERS: PCP Family Medicine; Visit Provider Family Medicine
DX: J02.9 Acute pharyngitis, unspecified (principal); Z20.822 Contact with and (suspected) exposure to COVID-19
CPT/HCPCS: U0003

== ENCOUNTER 2022-06-02 15:36 | Outpatient (REF) | payer BC, SELFPAY ==
--- NOTE | 2022-06-02 13:40 | PAPFT_PTH ---
PATIENT: Rosie Cuello LOC: [facility] U#:[id number] AGE/SX: 31/F ROOM: RE06/02/[address]: Marline Bowman MD : 1990 BED: DIS: 06/02/2022 SPEC #: [id number] RECD: 06/02/22 17:24 STATUS: SHANTAL REQ #: [id number] SANJU: 06/02/22 13:[address]: Marline Bowman DEPT: [facility] Cytology RECD BY: Petra Hollis ENTERED: 06/02/22 17:24 SP TYPE: PAPFT OTHR DR: Cheryl Reese MD, [place] Tissues: 1 - CX/ENDOCX FOR PAP SMEARS Procedures: PAP THIN PREP/[facility] Screening HPV DNA PROBE Comments: [id number] (HPV 16 & 18/45) (CHLAMYDIA/GC)
[2022-06-03 12:29] LABS: Chlamydia Result Negative (Negative); GC Result Negative (Negative)
== END 2022-06-02 15:37 | disposition home or self-care (01) ==
LOC: LBN 15:36
PROVIDERS: PCP Family Medicine; Visit Provider Obstetrics & Gynecology
DX: Z11.3 Encounter for screening for infections with a predominantly sexual mode of transmission (principal); Z12.4 Encounter for screening for malignant neoplasm of cervix; R87.612 Low grade squamous intraepithelial lesion on cytologic smear of cervix (LGSIL); Z11.51 Encounter for screening for human papillomavirus (HPV); R87.810 Cervical high risk human papillomavirus (HPV) DNA test positive
CPT/HCPCS: 87491; 87591; 88142; 87624

== ENCOUNTER 2022-06-06 02:37 | Outpatient (CLI) | payer BC, SELFPAY ==
--- OUTSIDE RECORDS SUMMARY | 2022-06-06 02:42 | XMS_ITS ---
Author Name Aba Umana Address [address], [place] [id number] [facility] Address [address], [place] [id number] Care Team Providers Care Horologist Name Role Phone Aba Umana Unavailable [phone] PROBLEMS Type Condition ICD9-CM Code OOG46-WZ Code Onset Dates Condition Status SNOMED Code Problem Celiac disease K90.0 Active 010383989 Problem Polycystic ovarian syndrome E28.2 Active 91603698 Problem New daily persistent headache G44.52 Active 40295764 1306437 Problem Premenstrual tension syndrome N94.3 Active 15486715 Problem Polycystic ovaries E28.2 Active Problem Tinnitus of both ears H93.13 Active 5333942742397 Problem Intractable migraine with aura with status migrainosus G43.111 Active 166019716 Problem Cervical erosion/ectropion N86 Active 634056762 Problem Lightheadedness R42 Active 50972087 8 Problem PMS (premenstrual syndrome) N94.3 Active Problem Motion sickness, initial encounter T75.3XXA Active 75245065 Problem Vestibular migraine G43.109 Active 2322 31555 Problem Chiari malformation type I G93.5 Active 837972722 Problem Dizziness R42 Active Problem Nonintractable episodic headache, unspecified headache type R51 Active 66203484 ALLERGIES Substance Reaction Event Type Date Status Moxifloxacin HCl vomiting Drug Allergy May, Acti ve Midazolam HCl Trouble waking Drug Allergy May, Act gilberto Benzodiazepines Unknown Drug Allergy May, Activ e ENCOUNTERS Encounter Location Date Diagnosis [address] [id number] 06 May, [address] [id number] 02 May, 2021 Encounter for other screening for malignant neoplasm of breast Z12.39 ; Encounter for gynecological examination (general) (routine) with abnormal findings Z01.411 ; Encounter for screening for malignant neoplasm of cervix Z12.4 ; Screening examination for sexually transmitted disease Z11.3 ; Cervical erosion/ectropion N86 and PMS (premenstrual syndrome) N94.[address] [id number] 10 Nov, 2020 Family planning, BCP maintenance Z30.[address] [id number] Oct, [address] [id number] July, [address] [id number] 14 Dec, 2019 Family planning, BCP maintenance Z30.41 [facility] [address] [id number] Oct, [facility] [address] [place] [address] [id number] Oct, Candidiasis B37.9 [facility] [address] [place] [id number] Oct, [facility] [address] [place] [address] [id number] Oct, Open bite of right forearm, initial encounter S51.851A and Bitten by cat, initial encounter W55.01XA [address] [id number] 16 May, 2019 Family planning, BCP maintenance Z30.[address] [id number] 13 May, 2019 Encounter for gynecological examination (general) (routine) without abnormal findings Z01.419 ; Polycystic ovarian syndrome E28.2 ; Cervical erosion/ectropion N86 and Chiari malformation type I G93.[address] [id number] Feb, Family planning, BCP maintenance Z30.41 [facility] [address] [place] [address] [id number] Oct, Fever, unspecified fever cause R50.9 Aba Umana MD [address], [place] [id number] Jun, Family planning, BCP maintenance Z30.[address] [id number] Jun, Family planning, BCP maintenance Z30.[address] [id number] May, [address] [id number] May, Encounter for gynecological examination without abnormal finding Z01.419 ; Polycystic ovarian syndrome E28.2 and Nonintractable episodic headache, unspecified headache type R51 [address] [id number] Jan, [facility] [address] [id number] Jan, [facility] [address] [place] [address] [id number] Nov, Dizziness R42 ; Nonintractable episodic headache, unspecified headache type R51 and Chiari malformation type I G93.5 [facility] [address] [id number] Oct, [facility] [address] [id number] Oct, Intractable migraine with aura with status migrainosus G43.111 ; Chiari malformation type I G93.5 and Vestibular migraine G43.109 [facility] [address] [place] [address] [id number] Sep, [facility] [address], [address] [place] [id number] Sep, [facility] [address] [place] [address] [place] [id number] Aug, Lightheadedness R42 ; Polycystic ovaries E28.2 ; Dizziness R42 ; Tinnitus of both ears H93.13 ; Abnormal MRI R93.8 and Chronic nonintractable headache, unspecified headache type R51 [facility] [address] [id number] Aug, [facility] [address] [id number] July, [facility] [address] [id number] July, [facility] [address] [place] [address] [id number] July, Lightheadedness R42 ; Motion sickness, initial encounter T75.3XXA and New daily persistent headache G44.52 [facility] [address] [place] [id number] Jun, [address] [id number] Jun, Polycystic ovaries E28.[address] [id number] May, Encounter for gynecological examination without abnormal finding Z01.419 ; Encounter for screening for malignant neoplasm of cervix Z12.4 ; Encounter for screening for infections with predominantly sexual mode of transmission Z11.3 ; Premenstrual tension syndrome N94.3 ; Polycystic ovarian syndrome E28.2 ; Family planning, BCP maintenance Z30.41 and Vaginal discharge N89.[address] [id number] May, Encounter for gynecological examination (general) (routine) without abnormal findings Z01.419 ; Encounter for screening for malignant neoplasm of breast Z12.39 ; Premenstrual tension syndrome N94.3 ; Other fatigue R53.83 and Celiac disease K90.0 Aba Umana MD [address] [place] [address] [id number] Apr, Encounter for gynecological examination (general) (routine) without abnormal findings Z01.419 ; Polycystic ovarian syndrome E28.2 ; Encounter for screening for malignant neoplasm of cervix Z12.4 ; Encounter for screening for infections with a predominantly sexual mode of transmission Z11.3 and Encounter for initial prescription of contraceptive pills Z30.011 Aba Umana MD [address], [place] [id number] 14 Mar, 2014 Visit for routine director immunology exam V72.31 ; PCOS (polycystic ovarian syndrome) 256.4 ; Screen for STD (sexually transmitted disease) V74.5 and Cervical cancer screening V76.2 Aba Umana MD [address], [place] [id number] Jan, Aba Umana MD [address], [place] [id number] Mar, ROUTINE CREDIT RESOLUTION REPRESENTATIVE EXAMINATION V72.31 ; Routine general medical examination at a health care facility V70.0 ; VACCIN FOR INFLUENZA V04.81 ; PRESCRIP-ORAL CONTRACEPT V25.01 and SCREEN FOR VENERAL DIS V74.5 IMMUNIZATIONS Vaccine Route Administration Date Status JESSE - Flu VACC 6 MONTHS > Unknown Mar 23, 2013 Ad ministered SOCIAL HISTORY Qualifiers Date Never Smoker REASON FOR REFERRAL FUNCTIONAL STATUS PLAN OF CARE Activity Details VITAL SIGNS Height 5 ft 2 in in 2021-05-15 Height 5 ft 2 in in 2019-10-26 Height 5 ft 2 in in 2019-05-27 Height 5 ft 2 in in 2018-10-15 Height 5 ft 2 in in 2018-05-21 Height 5 ft 2 in in 2017-11-18 Height 5 ft 2 in in 2017-11-11 Height 5 ft 2 in in 2017-08-04 Height 5 ft 2 in in 2017-05-19 Height 5 ft 2 in in 2016-05-16 Height 5 ft 2 in in 2015-04-16 Height 5 ft 2 in in 2014-03-29 Height 5 ft 2 in in 2013-03-23 Weight 160.8 lbs 2021-05-15 Weight 154 lbs 2019-10-26 Weight 155 lb 2 oz lbs 2019-05-27 Weight 154 lb 6 oz lbs 2018-05-21 Weight 149 lbs 2017-11-11 Weight 145 lbs 2017-08-04 Weight 148 lbs 2017-05-19 Weight 152.8 lbs 2016-05-16 Weight 153 lbs 2015-04-16 Weight 147 lbs 2014-03-29 Weight 137 lbs 2013-03-23 Temperature 98.1 degrees Fahrenheit Temperature 101 degrees Fahrenheit 2 Heart Rate 888 /min 2019-10-26 Heart Rate 114 /min 2018-10-15 Heart Rate 80 /min 2017-11-11 Heart Rate 108 /min 2014-03-29 Oximetry 99 2018-10-15 BMI 29.41 kg/m2 2021-05-15 BMI 28.16 kg/m2 2019-10-26 BMI 28.37 kg/m2 2019-05-27 BMI 28.23 kg/m2 2018-05-21 BMI 27.25 kg/m2 2017-11-11 BMI 26.52 kg/m2 2017-08-04 BMI 27.07 kg/m2 2017-05-19 BMI 27.94 kg/m2 2016-05-16 BMI 27.98 kg/m2 2015-04-16 BMI 26.88 kg/m2 2014-03-29 BMI 25.05 kg/m2 2013-03-23 Blood pressure systolic 114 mm Hg Blood pressure diastolic 62 mm Hg 2021-05 MEDICATIONS Medication Instructions Dosage Frequency Start Date End Date Duration Status Tylenol 325 MG Orally every 4 hrs 1 tablet as needed 4h Active Ibuprofen 200 MG Orally Three times a day 1 tablet with food or milk as needed 8h Active Isibloom 0.15-30 MG-MCG TAKE 1 TABLET BY MOUTH ONCE DAILY CONTINUOUSLY . DO NOT TAKE A BREAK WITH INACTIVE PILLS 63 Active PROCEDURES Procedure Date Ordered Result Body Site SCR PAP SMER; OBTAIN PREP&CONVY-LAB Mar 23, 2013 THEO/[facility] [place] [facility] May 19, 2017 CHYLMD TRACH, DNA, AMP PROBE Mar 23, 2013 RESULTS Name Result Date Reference Range Pap Lb, rfx HPV all pth 2021-05-15 . Note: . Clinical history: DIAGNOSIS: HR HPV neg Pap obscu red by blood. Specimen adequacy: Additional comment: Recommendation: Performed by: Electronically signed by: Test ordered: Maturation index: Amended report: Addendum: QC reviewed by: Cytology history: Special procedure: QA comment: Diagnosis provided by: Source: Pathologist provided ICD9: Clinician provided ICD9: Interpretation LBP CPT Code Automation CHLAMYDIA/GONOCOCCUS, by PCR ([facility] Send Out) 2021-05-15 C. trachomatis by PCR Not detected N. gonorrhoeae by PCR Not detected Chlamydia trachomatis, Neisseria gonorrhoeae, Pap Lb, rfx HPV ASCU 2017-05-19 . Note: . Clinical history: DIAGNOSIS: neg HR HPV and ALE Specimen adequacy: Additional comment: Recommendation: Performed by: Electronically signed by: Test ordered: Maturation index: Amended report: Addendum: QC reviewed by: Cytology history: Special procedure: QA comment: Diagnosis provided by: Source: Pathologist provided ICD9: Clinician provided ICD9: Interpretation LBP CPT Code Automation CHLAMYDIA/GONOCOCCUS, by PCR 2017-05-19 C. trachomatis by PCR Not detected PCR GENITAL SPECIMEN N. gonorrhoeae by PCR Not detected Chlamydia trachomatis, Neisseria gonorrhoeae, Please note: CBC, WITH AUTO DIFF 2016-05-16 WBC 5.8 4.8-10.8 RBC 4.30 4.20-5.40 HGB 13.1 12.0-16.0 HCT 37.1 37.0-47.0 MCV 86.3 81.0-99.0 MCH 30.5 27.0-31.0 MCHC 35.3 32.0-37.0 RDW-CV 12.5 11.5-14.5 PLT 322 130-400 MPV 9.0 7.4-10.4 NE% 39.4 42.2-75.2 LY% 51.0 20.5-51.1 MO% 7.4 1.7-9.3 EO% 1.7 0.9-2.9 BA% 0.3 0.0-0.8 NE# 2.3 1.4-6.5 LY# 3.0 1.2-3.4 MO# 0.4 0.1-0.6 EO# 0.1 0.0-0.2 BA# 0.0 0.0-0.2 FERRITIN 2016-05-16 FERRITIN 25.5 11.0-307.0 GLUCOSE 2016-05-16 TSH w/REFLEX TO FT4 2016-05-16 TSH 1.43 0.45-5.33 Pap Lb, Ct-Ng, rfx HPV ASCU 2015-04-16 . Chlamydia, Nuc. Acid Amp Not Detected Gonococcus, Nuc. Acid Amp Not Detected Note: . Clinical history: ASCUS 2012, 2014 Neg pap DIAGNOSIS: Neg. for I.L. or Malignancy Specimen adequacy: SAtisfacotry Additional comment: Recommendation: repeat one yearGen Path Performed by: Electronically signed by: Test ordered: Maturation index: Amended report: Addendum: QC reviewed by: Cytology history: Special procedure: QA comment: Diagnosis provided by: Source: Pathologist provided ICD9: Clinician provided ICD9: Interpretation LBP CPT Code Automation CHLAMYDIA/GONOCOCCUS, by PCR 2015-04-16 C. trachomatis by PCR Not Detected PCR GENITAL SPECIMEN N. gonorrhoeae by PCR Not Detected Chlamydia trachomatis, Neisseria gonorrhoeae, Please note: Pap Lb, Ct-Ng, rfx HPV ASCU 2014-03-29 . Chlamydia, Nuc. Acid Amp Not Detected Gonococcus, Nuc. Acid Amp Not Detected Note: . Clinical history: 2012 ascus DIAGNOSIS: Neg. for I.L. or Malignancy Specimen adequacy: satisfactory Additional comment: Recommendation: Performed by: Electronically signed by: Test ordered: Maturation index: Amended report: Addendum: QC reviewed by: Cytology history: Special procedure: QA comment: Diagnosis provided by: Source: Pathologist provided ICD9: Clinician provided ICD9: Interpretation LBP CPT Code Automation Pap IG, Ct-Ng, rfx HPV ASCU 2013-03-26 . Chlamydia, Nuc. Acid Amp Negative Gonococcus, Nuc. Acid Amp Negative Note: . . Clinical history: DIAGNOSIS: Specimen adequacy: Additional comment: Recommendation: Performed by: Electronically signed by: Test ordered: Maturation index: Amended report: Addendum: QC reviewed by: Cytology history: Special procedure: QA comment: Diagnosis provided by: Source: Pathologist provided ICD9: Clinician provided ICD9: Interpretation IGLBP CPT Code Automation CHLAM/GC GENPROBE ([id number]) 2013-03-23 CHLAM/GC GENPROBE ([id number]) Neg. SOURCE: Neg REASON FOR VISIT CREDIT RESOLUTION REPRESENTATIVE well woman, Following up my recent appt, CREDIT RESOLUTION REPRESENTATIVE well woman, OCP refill request, Rx request, ? infection, *yeast infection, *CREDIT RESOLUTION REPRESENTATIVE WWE, insurance issue, MED REFILL, Pharmacy closed, JESSE ?infected right forearm, OCP refill req, *CREDIT RESOLUTION REPRESENTATIVE WELL WOMAN, B/C refill, JESSE- EST; R/O meningitis, BCP rx , Prescription, Call Thursday or Thursday night only, *CREDIT RESOLUTION REPRESENTATIVE WELL WOMAN, ? change , Dr. Orellana's consult note, ENT dizziness/headaches; pt understands that if hearing test is required she will come a different day, PFP Est Patient (L), mri brain/iac to [facility], JAIRO- headaches, dizziness, Chiari Malformation, ENT f/u imaging, Imaging, cd, CT, MRI Results, MRI , ENT dizziness, pfp New Consult, PFP PA REVIEW, pre-load, Prescription clarification, CREDIT RESOLUTION REPRESENTATIVE well woman, CREDIT RESOLUTION REPRESENTATIVE EST WELLNESS , CREDIT RESOLUTION REPRESENTATIVE EST WELLNESS ,CREDIT RESOLUTION REPRESENTATIVE EST WELLNESS , CREDIT RESOLUTION REPRESENTATIVE EST WELLNESS , CREDIT RESOLUTION REPRESENTATIVE EST WELLNESS, CREDIT RESOLUTION REPRESENTATIVE EST WELLNESS, CREDIT RESOLUTION REPRESENTATIVE SAHIL EST Insurance Providers Health Insurance Type Health Plan Insurance Address Health Plan Insurance Phone Health Plan Insurance Name Health Plan Coverage Dates Member ID Patient Relationship to Subscriber Patient Address Patient Phone Patient Name Patient Date of Subscriber ID Subscriber Name Subscriber Date of Group No [place] [address] [facility] [id number] [place] self Rosie Miguel [id number] [place] [address] [facility] [id number] 94 [place] self Rosie Miguel [id number] [place] [address] [facility] [address] [place] Rosie Rivera [id number]
[2022-06-06 13:19] LABS: ALT 16 U/L (14-59); AST 12 U/L (15-37); Albumin 3.6 g/dL (3.4-5.0); Alkaline Phosphatase 66 U/L (46-116); Anion Gap 7.7 mmol/L (3-11); BUN 12 mg/dL (7-18); Bilirubin, Total 0.3 mg/dL (0.2-1.0); CO2 26.3 mmol/L (21.0-32.0); CREATININE 0.8 mg/dL (0.55-1.02); Calcium 8.8 mg/dL (8.5-10.1); Chloride 107 mmol/L (98-107); Estimated GFR 100.33 (mL/min/1.73m2); Glucose 114 mg/dL (74-106); Potassium 4.1 mmol/L (3.5-5.1); Sodium 141 mmol/L (136-145); Total Protein 7.6 g/dL (6.4-8.2)
[2022-06-06 13:50] LABS: Hemoglobin A1C 4.9 % (<5.7)
[2022-06-06 15:11] LABS: Calculated LDL 43 mg/dL (<100); Cholesterol 127 mg/dL (<200); HDL Cholesterol 60 mg/dL (40-60); Triglyceride 123 mg/dL (<150)
== END 2022-06-06 02:38 | disposition home or self-care (01) ==
LOC: LBO 02:38
PROVIDERS: PCP Family Medicine; Visit Provider Obstetrics & Gynecology
DX: E28.2 Polycystic ovarian syndrome (principal)
CPT/HCPCS: 36415; 80053; 80061; 83036

== ENCOUNTER 2023-06-08 16:22 | Outpatient (REF) | payer BC, SELFPAY ==
--- NOTE | 2023-06-08 16:15 | PAPFT_PTH ---
PATIENT: Rosie Cuello LOC: [facility] U#:[id number] AGE/SX: 32/F ROOM: RE06/08/[address]: Marline Bowman MD : 1990 BED: DIS: 06/08/2023 SPEC #: [id number] RECD: 06/08/23 17:46 STATUS: GENESISTatyana REChester #: [id number] SANJU: 06/08/23 16:[address]: Marline Bowman DEPT: [facility] Cytology RECD BY: Petra Hollis ENTERED: 06/08/23 17:47 SP TYPE: PAPFT BIANCA DR: Matilde Boudreaux, MOLASSES FEED MIXER Tissues: 1 - CX/ENDOCX FOR PAP SMEARS Procedures: PAP THIN PREP/UVM Screening HPV DNA PROBE Comments: [id number]
== END 2023-06-08 16:23 | disposition home or self-care (01) ==
LOC: LBN 16:22
PROVIDERS: PCP Nurse Practitioner Family; Visit Provider Obstetrics & Gynecology
DX: Z12.4 Encounter for screening for malignant neoplasm of cervix (principal)
CPT/HCPCS: 88142; 87624

== ENCOUNTER 2024-07-19 12:20 | Outpatient (REF) | payer MEDICAID, SELFPAY ==
--- NOTE | 2024-07-19 10:45 | PAPFT_PTH ---
PATIENT: Rosie Cuello LOC: [facility] U#:[id number] AGE/SX: 33/F ROOM: RE07/19/[address]: Marline Bowman MD : 1990 BED: DIS: 07/19/2024 SPEC #: [id number] RECD: 07/19/24 13:19 STATUS: SHANTAL REChester #: [id number] SANJU: 07/19/24 10:[address]: Marline Bowman DEPT: [facility] Cytology RECD BY: Petra Hollis ENTERED: 07/19/24 13:19 SP TYPE: PAPFT OTHR DR: Matilde Boudreaux, DISHCLOTH FOLDER Tissues: 1 - CX/ENDOCX FOR PAP SMEARS Procedures: PAP THIN PREP/UVM Screening HPV DNA PROBE Comments: [id number] (HPV 16 & 18/45)
== END 2024-07-19 12:21 | disposition home or self-care (01) ==
LOC: LBN 12:20
PROVIDERS: PCP Nurse Practitioner Family; Visit Provider Obstetrics & Gynecology
DX: Z12.4 Encounter for screening for malignant neoplasm of cervix (principal); R87.618 Other abnormal cytological findings on specimens from cervix uteri
CPT/HCPCS: 88142; 87624

== ENCOUNTER 2024-08-03 02:01 | Outpatient (CLI) | payer MEDICAID, SELFPAY ==
--- NOTE | 2024-08-03 07:15 | DI.RAD_ITS ---
Exam(s) XR THORACIC SPINE COMPLETE EXAM: XR THORACIC SPINE COMPLETE CLINICAL HISTORY: T8-T9 chronic pain,chronic midline thoracic back pain,m54.6. TECHNIQUE: 2D digital imaging was performed. Three views. COMPARISON: CR THORACIC SPINE from 08/14/2009 FINDINGS: BONES: There is no fracture or destructive lesion. The vertebral bodies and posterior elements are un remarkable. ALIGNMENT: Mild dextroscoliosis, similar to prior exam. DISKS: Interverebral disc spaces are maintained. Minimal anterior endplate osteophytes in the mid t horacic region. SOFT TISSUE: Visualized lungs are clear. IMPRESSION: Mild scoliosis. Mild degenerative changes. DATA REPOSITORY: RADIATION DOSE DELIVERED:
== END 2024-08-03 02:21 ==
LOC: DI 02:01
PROVIDERS: PCP Nurse Practitioner Family; Visit Provider Family Medicine
DX: M54.6 Pain in thoracic spine (principal); G89.29 Other chronic pain
CPT/HCPCS: 72072